=== PATIENT | female | born 1945 | race American Indian/Alaskan Native ===

== ENCOUNTER 2019-08-06 04:33 | Observation (INO) | payer MEDICARE ==
[2019-08-06] MEDS ORDERED: methylPREDNISolone Sod Succinate 125 MG/2 ML INJ IV ONE (05:09)
[2019-08-06] MEDS ORDERED: FUROSEMIDE 40 MG/4 ML INJ IV ONE (05:09)
[2019-08-06] MEDS ORDERED: NITROGLYCERIN 0.4 MG TAB SUBL SL ONE ×2 (05:10→05:16)
--- NOTE | 2019-08-06 06:03 | XRay Report ---
CHEST 1 VIEW 08/06/2019 5:26 AM INDICATION / CLINICAL INFORMATION: Dyspnea. COMPARISON: None available. FINDINGS: SUPPORT DEVICES: None. HEART / MEDIASTINUM: Heart is enlarged with pulmonary venous hypertension. LUNGS / PLEURA: Moderate interstitial pulmonary edema with small pleural effusions. No pneumothorax. ADDITIONAL FINDINGS: No significant additional findings. IMPRESSION: 1. Congestive heart failure. Signer Name: Tiffany Osorio MD Signed: 08/06/2019 5:59 AM Workstation Name: [id number]
[2019-08-06 06:08] LABS: Basophils # (Auto) 0.1 K/mm3 (0.0-0.1); Basophils % (Auto) 0.8 % (0.0-1.8); Eosinophils % (Auto) 0.6 % (0.0-4.3); Hematocrit 30.9 % (30.3-42.9); Hemoglobin 9.9 gm/dl (10.1-14.3); Lymphocytes % (Auto) 14.4 % (13.4-35.0); Mean Corpuscular HGB Conc 32 % (30-34); Mean Corpuscular Volume 87 fl (79-97); Monocytes # (Auto) 0.3 K/mm3 (0.0-0.8); Platelet Count 233 K/mm3 (140-440); Red Blood Count 3.56 M/mm3 (3.65-5.03); Red Cell Distribution Width 16.5 % (13.2-15.2)
[2019-08-06 06:20] LABS: INR 1.08 (0.87-1.13); Partial Thromboplastin Time 28.7 Sec. (24.2-36.6)
[2019-08-06 07:21] LABS: Creatine Kinase MB 2.4 ng/mL (0.0-4.0)
[2019-08-06 07:23] LABS: Albumin 3.9 g/dL (3.9-5); Bilirubin,Direct 0.2 mg/dL (0-0.2)
--- NOTE | 2019-08-06 08:14 | Emergency Department Report ---
ED Shortness of Breath HPI - General Chief Complaint: Dyspnea/Respdistress Stated Complaint: SOB Time Seen by Provider: 08/06/19 06:12 Source: patient, EMS Mode of arrival: Stretcher Limitations: Physical Limitation - History of Present Illness Initial Comments: This is a 74-year-old female who arrives from out of town. Apparently she is from her medicine. She presented with shortness of breath prior to my arrival with a markedly elevated blood pressure. She was given Lasix and nitrates prior to arrival. Blood pressure was persistently high. She was given labetalol. On my encounter patient was in respiratory distress BiPAP was immediately ini tiated. She is not complaining of chest pain. Said no recent fever or chills or significant productive cough. She is now here with a family member. This has history of asthma did receive a neb in route. MD Complaint: shortness of breath -: Gradual, days(s) Severity: severe Improves With: nothing Worsens With: nothing Known History Of: congestive heart failure Associated Symptoms: denies other symptoms - Related Data Home Medications Medication Instructions Recorded Confirmed Last Taken HYDROcodone/APAP 5-325 [[place] 1 each PO Q6HR PRN 08/06/19 08/06/19 Unknown 5/325] Linaclotide [Linzess] 145 mcg PO QDAY PRN 08/06/19 08/06/19 Unknown Lisinopril/Hydrochlorothiazide 1 tab PO QDAY 08/06/19 08/06/19 Unknown [Zestoretic 20-12.5 mg] Nitroglycerin [Nitrostat] 0.4 mg SL Q5M PRN 08/06/19 08/06/19 Unknown Oxybutynin [Ditropan] 5 mg PO TID PRN 08/06/19 08/06/19 Unknown Pantoprazole [Protonix] 40 mg PO BID 08/06/19 08/06/19 Unknown Sertraline [Zoloft] 50 mg PO QDAY 08/06/19 08/06/19 Unknown cloNIDine [Catapres] 0.1 mg PO BID 08/06/19 08/06/19 Unknown Allergies Allergy/AdvReac Type Severity Reaction Status Date / Time No Known Allergies Allergy Unverified 08/06/19 04:48 ED Review of Systems ROS: Stated complaint: SOB Other details as noted in HPI Comment: Unobtainable due to pts medical conditions (limited secondary to respiratory distress) ED Past Medical Hx - Past Medical History Previous Medical History?: Yes Hx Hypertension: Yes Hx Asthma: Yes - Social History Smoking Status: Current Every Day Smoker Substance Use Type: Alcohol, Marijuana - Medications Home Medications: Home Medications Medication Instructions Recorded Confirmed Last Taken Type HYDROcodone/APAP 5-325 [[place] 1 each PO Q6HR PRN 08/06/19 08/06/19 Unknown History 5/325] Linaclotide [Linzess] 145 mcg PO QDAY PRN 08/06/19 08/06/19 Unknown History Lisinopril/Hydrochlorothiazide 1 tab PO QDAY 08/06/19 08/06/19 Unknown History [Zestoretic 20-12.5 mg] Nitroglycerin [Nitrostat] 0.4 mg SL Q5M PRN 08/06/19 08/06/19 Unknown History Oxybutynin [Ditropan] 5 mg PO TID PRN 08/06/19 08/06/19 Unknown History Pantoprazole [Protonix] 40 mg PO BID 08/06/19 08/06/19 Unknown History Sertraline [Zoloft] 50 mg PO QDAY 08/06/19 08/06/19 Unknown History cloNIDine [Catapres] 0.1 mg PO BID 08/06/19 08/06/19 Unknown History ED Physical Exam - General Limitations: Physical Limitation General appearance: alert, in no apparent distress - Head Head exam: Present: atraumatic, normocephalic - Eye Eye exam: Present: normal appearance - ENT ENT exam: Present: mucous membranes moist - Neck Neck exam: Present: normal inspection - Respiratory Respiratory exam: Present: respiratory distress, rales, accessory muscle use. Absent: normal lung sounds bilaterally - Cardiovascular Cardiovascular Exam: Present: regular rate, normal rhythm. Absent: systolic murmur, diastolic murmur, rubs, gallop - GI/Abdominal GI/Abdominal exam: Present: soft, normal bowel sounds. Absent: distended, tenderness, guarding, rebound, rigid - Extremities Exam Extremities exam: Present: normal inspection - Back Exam Back exam: Present: normal inspection - Neurological Exam Neurological exam: Present: alert, oriented X3, CN II-XII intact. Absent: motor sensory deficit - Psychiatric Psychiatric exam: Present: normal affect, normal mood - Skin Skin exam: Present: warm, dry, intact, normal color. Absent: rash ED Course Vital Signs 08/06/19 08/06/19 08/06/19 04:55 05:00 05:05 Temperature 97.6 F Pulse Rate 80 80 Respiratory 20 26 H Rate Blood Pressure 239/124 Blood Pressure 239/124 [Right] O2 Sat by Pulse 100 100 Oximetry 08/06/19 08/06/19 08/06/19 05:15 05:30 05:45 Temperature Pulse Rate 75 83 72 Respiratory 26 H 25 H 25 H Rate Blood Pressure 243/120 230/151 220/111 Blood Pressure [Right] O2 Sat by Pulse 100 100 100 Oximetry 08/06/19 08/06/19 08/06/19 06:00 06:15 06:31 Temperature Pulse Rate 75 74 99 H Respiratory 27 H 25 H 32 H Rate Blood Pressure 243/120 243/120 235/112 Blood Pressure [Right] O2 Sat by Pulse 100 100 99 Oximetry 08/06/19 08/06/19 08/06/19 06:45 06:55 07:00 Temperature Pulse Rate 58 L 61 55 L Respiratory 23 28 H 17 Rate Blood Pressure 140/88 150/87 Blood Pressure 164/104 [Right] O2 Sat by Pulse 100 100 100 Oximetry 08/06/19 07:15 Temperature Pulse Rate 59 L Respiratory 15 Rate Blood Pressure 148/87 Blood Pressure [Right] O2 Sat by Pulse 99 Oximetry - Reevaluation(s) Reevaluation #1: Patient responded well to 10 of labetalol. She is placed on BiPAP. She responded well to that. She will remain on BiPAP. She does appear to be much continuous conveyor screen drier now lungs sound better. Work breathing is normal. She will be admitted to telemetry on BiPAP. She may likely be a candidate to remove BiPAP today. 08/06/19 08:27 ED Medical Decision Making - Lab Data Result diagrams: 08/06/19 05:24 08/06/19 05:24 Laboratory Results - last 24 hr 08/06/19 08/06/19 08/06/19 05:24 05:24 05:24 WBC 6.9 RBC 3.56 L Hgb 9.9 L Hct 30.9 MCV 87 MCH 28 MCHC 32 RDW 16.5 H Plt Count 233 Lymph % (Auto) 14.4 [place] % (Auto) 5.0 Eos % (Auto) 0.6 Baso % (Auto) 0.8 Lymph # 1.0 L [place] # 0.3 Eos # 0.0 Baso # 0.1 Seg Neutrophils % 79.2 H Seg Neutrophils # 5.5 PT 13.9 INR 1.08 APTT 28.7 Sodium 143 Potassium 4.1 Chloride 105.4 Carbon Dioxide 26 Anion Gap 16 BUN 18 H Creatinine 1.1 Estimated GFR 49 BUN/Creatinine Ratio 16 Glucose 168 H Calcium 9.0 Total Bilirubin Direct Bilirubin Indirect Bilirubin AST ALT Alkaline Phosphatase Total Creatine Kinase CK-MB (CK-2) CK-MB (CK-2) Rel Index Troponin T NT-Pro-B Natriuret Pep Total Protein Albumin Albumin/Globulin Ratio 08/06/19 08/06/19 08/06/19 05:24 05:24 05:27 WBC RBC Hgb Hct MCV MCH MCHC RDW Plt Count Lymph % (Auto) [place] % (Auto) Eos % (Auto) Baso % (Auto) Lymph # [place] # Eos # Baso # Seg Neutrophils % Seg Neutrophils # PT INR APTT Sodium Potassium Chloride Carbon Dioxide Anion Gap BUN Creatinine Estimated GFR BUN/Creatinine Ratio Glucose Calcium Total Bilirubin 0.40 Direct Bilirubin 0.2 Indirect Bilirubin 0.2 AST 29 ALT 13 Alkaline Phosphatase 82 Total Creatine Kinase 86 CK-MB (CK-2) 2.4 CK-MB (CK-2) Rel Index 2.7 Troponin T 0.015 NT-Pro-B Natriuret Pep 3528 H Total Protein 7.9 Albumin 3.9 Albumin/Globulin Ratio 1.0 - EKG Data -: EKG Interpreted by Me EKG shows normal: sinus rhythm Rate: normal - EKG Data Interpretation: LVH (LVH with associated repolarization abnormality) - Radiology Data Radiology results: report reviewed (IMPRESSION: My impression was pulmonary edema) Critical Care Time: Yes Critical care time in (mins) excluding proc time.: 45 Critical care attestation.: If time is entered above; I have spent that time in minutes in the direct care of this critically ill patient, excluding procedure time. ED Disposition Clinical Impression: Respiratory distress, Malignant hypertension Pulmonary edema Qualifiers: Chronicity: acute Qualified Code(s): J81.0 - Acute pulmonary edema Disposition: OP ADMIT IP TO THIS HOSP Is pt being admited?: Yes Does the pt Need Aspirin: Yes Condition: Stable Instructions: Pulmonary Edema (ED), Hypertension (ED) Time of Disposition: 08:29
[2019-08-06] MEDS ORDERED: ASPIRIN 325 MG TAB PO ONE (08:30)
[2019-08-06 09:30] LABS: Chol/HDL Ratio 2.16 %
[2019-08-06] MEDS ORDERED: OXYBUTYNIN 5 MG TAB PO PRN (11:08)
[2019-08-06] MEDS ORDERED: LINACLOTIDE 145 MCG PO PRN (11:08)
[2019-08-06] MEDS ORDERED: HYDROcodone/ACETAMINOPHEN 5-325 MG TAB PO PRN (11:08)
[2019-08-06] MEDS ORDERED: NITROGLYCERIN 0.4 MG TAB SUBL SL PRN (11:08)
[2019-08-06] MEDS ORDERED: HYDROmorphone 1 MG/1 ML INJ IV PRN (11:10)
[2019-08-06] MEDS ORDERED: ACETAMINOPHEN 325 MG TAB PO PRN (11:10)
[2019-08-06] MEDS ORDERED: ONDANSETRON 4 MG/2 ML INJ IV PRN (11:10)
[2019-08-06] MEDS ORDERED: NON-FORMULARY EACH (Lisinopril/Hydrochlorothiazide [Zestoretic 20-12.5 Mg] 1 TAB) PO SCH (11:15)
[2019-08-06] MEDS ORDERED: hydrALAZINE 20 MG/1 ML INJ IV PRN (11:18)
[2019-08-06] MEDS ORDERED: hydroCHLOROthiazide 12.5 MG CAP PO SCH (12:00)
--- NOTE | 2019-08-06 14:40 | Consultation ---
<JAMESON LORENZO - Last Filed: 08/06/19 14:53> History of Present Illness Consult date: 08/06/19 Requesting physician: CARMINA NICHOLS Consult reason: congestive heart failure History of present illness: Ms. Bates is a 74 y/o female who presented to [facility] with c/o abdominal pain and accompanying SOB that worsened over the past two nights. She is previously unknown to our practice and recently relocated here from [facility], but there are no medical records available for review. She reports a history of asthma, CHF and hypertension. On admission, her BP was markedly elevated and she required BiPAP for respiratory distress. She denied chest pain, n/v, fever, chills or a producdtive cough. After receiving nitrates, Lasix and nebs, her symptoms improved and she has subsequently been weaned down to [place]. An x-ray was consistent with heart failure and her troponins elevated to 0.015, 0.03 and 0.029. Past History Past Medical History: heart failure, other (asthma, ) Medications and Allergies Allergies Allergy/AdvReac Type Severity Reaction Status Date / Time No Known Allergies Allergy Unverified 08/06/19 04:48 Home Medications Medication Instructions Recorded Confirmed Last Taken Type HYDROcodone/APAP 5-325 [[place] 1 each PO Q6HR PRN 08/06/19 08/06/19 Unknown History 5/325] Linaclotide [Linzess] 145 mcg PO QDAY PRN 08/06/19 08/06/19 Unknown History Lisinopril/Hydrochlorothiazide 1 tab PO QDAY 08/06/19 08/06/19 Unknown History [Zestoretic 20-12.5 mg] Nitroglycerin [Nitrostat] 0.4 mg SL Q5M PRN 08/06/19 08/06/19 Unknown History Oxybutynin [Ditropan] 5 mg PO TID PRN 08/06/19 08/06/19 Unknown History Pantoprazole [Protonix] 40 mg PO BID 08/06/19 08/06/19 Unknown History Sertraline [Zoloft] 50 mg PO QDAY 08/06/19 08/06/19 Unknown History cloNIDine [Catapres] 0.1 mg PO BID 08/06/19 08/06/19 Unknown History Active Meds: Active Medications Acetaminophen (Tylenol) 650 mg PO Q4H PRN PRN Reason: Pain MILD(1-3)/Fever >100.5/CHEUNG Acetaminophen/Hydrocodone Bitart ([place] 5/325) 1 each PO Q6HR PRN PRN Reason: PAIN Clonidine HCl (Catapres) 0.1 mg PO Q8H [facility] Hydralazine HCl (Apresoline) 10 mg IV Q3H PRN PRN Reason: Blood Pressure Hydromorphone HCl (Dilaudid) 0.5 mg IV Q3H PRN PRN Reason: Pain , Severe (7-10) Lisinopril (Zestril) 20 mg PO QDAY [facility] Miscellaneous Medication (Linaclotide [Linzess]) 145 mcg PO QDAY PRN PRN Reason: Constipation Nitroglycerin (Nitrostat) 0.4 mg SL Q5M PRN PRN Reason: Chest Pain Ondansetron HCl (Zofran) 4 mg IV Q8H PRN PRN Reason: Nausea And Vomiting Oxybutynin Chloride (Ditropan) 5 mg PO TID PRN PRN Reason: urine incontinence Pantoprazole Sodium (Protonix) 40 mg PO BID [facility] Sertraline HCl (Zoloft) 50 mg PO QDAY [facility] Sodium Chloride (Sodium Chloride Flush Syringe 10 Ml) 10 ml IV BID [facility] Sodium Chloride (Sodium Chloride Flush Syringe 10 Ml) 10 ml IV PRN PRN PRN Reason: LINE FLUSH Review of Systems All systems: negative Respiratory: shortness of breath Physical Examination Vital Signs Temp Pulse Resp Pulse Ox 97.6 F 80 20 100 08/06/19 04:55 08/06/19 04:55 08/06/19 04:55 08/06/19 04:55 General appearance: no acute distress, other (edentulous) HEENT: Positive: PERRL Neck: Positive: neck supple Cardiac: Positive: Reg Rate and Rhythm Lungs: Positive: Rales (right base) Neuro: Positive: Grossly Intact Abdomen: Positive: Unremarkable Female genitourinary: deferred Skin: Positive: Clear Musculoskeletal: Normal Range of Motion Extremities: Present: normal Results 08/06/19 05:24 08/06/19 05:24 Cardiac Enzymes 08/06/19 Range/Units 05:27 AST 29 (5-40) units/L CK-MB (CK-2) 2.4 (0.0-4.0) ng/mL Coagulation 08/06/19 Range/Units 05:24 PT 13.9 (12.2-14.9) Sec. INR 1.08 (0.87-1.13) APTT 28.7 (24.2-36.6) Sec. Lipids 08/06/19 Range/Units 08:39 Triglycerides 47 (2-149) mg/dL Cholesterol 167 (50-199) mg/dL HDL Cholesterol 77 H (40-59) mg/dL Cholesterol/HDL Ratio 2.16 % CBC 08/06/19 Range/Units 05:24 WBC 6.9 (4.5-11.0) K/mm3 RBC 3.56 L (3.65-5.03) M/mm3 Hgb 9.9 L (10.1-14.3) gm/dl Hct 30.9 (30.3-42.9) % Plt Count 233 (140-440) K/mm3 Lymph # 1.0 L (1.2-5.4) K/mm3 [place] # 0.3 (0.0-0.8) K/mm3 Eos # 0.0 (0.0-0.4) K/mm3 Baso # 0.1 (0.0-0.1) K/mm3 Comprehensive Metabolic Panel 08/06/19 08/06/19 Range/Units 05:24 05:27 Sodium 143 (137-145) mmol/L Potassium 4.1 (3.6-5.0) mmol/L Chloride 105.4 (98-107) mmol/L Carbon Dioxide 26 (22-30) mmol/L BUN 18 H (7-17) mg/dL Creatinine 1.1 (0.7-1.2) mg/dL Glucose 168 H (65-100) mg/dL Calcium 9.0 (8.4-10.2) mg/dL Direct Bilirubin 0.2 (0-0.2) mg/dL Indirect Bilirubin 0.2 mg/dL AST 29 (5-40) units/L ALT 13 (7-56) units/L Alkaline Phosphatase 82 (35-129) units/L Total Protein 7.9 (6.3-8.2) g/dL Albumin 3.9 (3.9-5) g/dL - Imaging and Cardiology Echo: pending EKG interpretations - Telemetry EKG Rhythm: Sinus Rhythm Assessment and Plan Ms. Bates is a 74 y/o female who presented to the ED with worsening abdominal pain and SOB. Her presentation is consistent with a heart failure exacerbation; however, the type is unknown. Will obtain echocardiogram and initiate IV Lasix BID. Continue to trend troponins and current cardiac management. Will d/c stress test as she currently denies chest pain - if ultimately indicated, will consider obtaining while an outpatient. Troponin elevation likely d/t HF. Further recommendations pending hospital course. The patient has been seen in conjunction with Dr. Shirley, who agrees with the assessment and plan. - Patient Problems (1) Heart failure Current Visit: Yes Status: Acute Qualifiers: Heart failure type: unspecified (2) Hypertension Current Visit: Yes Status: Chronic (3) Respiratory distress Current Visit: Yes Status: Acute <UMM SHIRLEY R - Last Filed: 08/06/19 16:30> Medications and Allergies Active Meds: Active Medications Acetaminophen (Tylenol) 650 mg PO Q4H PRN PRN Reason: Pain MILD(1-3)/Fever >100.5/[place]UNG Acetaminophen/Hydrocodone Bitart ([place] 5/325) 1 each PO Q6HR PRN PRN Reason: PAIN Clonidine HCl (Catapres) 0.1 mg PO Q8H [facility] Last Admin: 08/06/19 15:04 Dose: 0.1 mg Documented by: Furosemide (Lasix) 40 mg IV 0600,1800 [facility] Hydralazine HCl (Apresoline) 10 mg IV Q3H PRN PRN Reason: Blood Pressure Hydromorphone HCl (Dilaudid) 0.5 mg IV Q3H PRN PRN Reason: Pain , Severe (7-10) Lisinopril (Zestril) 20 mg PO QDAY [facility] Last Admin: 08/06/19 15:04 Dose: 20 mg Documented by: Miscellaneous Medication (Linaclotide [Linzess]) 145 mcg PO QDAY PRN PRN Reason: Constipation Nitroglycerin (Nitrostat) 0.4 mg SL Q5M PRN PRN Reason: Chest Pain Ondansetron HCl (Zofran) 4 mg IV Q8H PRN PRN Reason: Nausea And Vomiting Oxybutynin Chloride (Ditropan) 5 mg PO TID PRN PRN Reason: urine incontinence Pantoprazole Sodium (Protonix) 40 mg PO BID [facility] Last Admin: 08/06/19 15:04 Dose: 40 mg Documented by: Sertraline HCl (Zoloft) 50 mg PO QDAY [facility] Last Admin: 08/06/19 15:04 Dose: 50 mg Documented by: Sodium Chloride (Sodium Chloride Flush Syringe 10 Ml) 10 ml IV BID [facility] Last Admin: 08/06/19 15:09 Dose: 10 ml Documented by: Sodium Chloride (Sodium Chloride Flush Syringe 10 Ml) 10 ml IV PRN PRN PRN Reason: LINE FLUSH Physical Examination Vital Signs Temp Pulse Resp Pulse Ox 97.6 F 80 20 100 08/06/19 04:55 08/06/19 04:55 08/06/19 04:55 08/06/19 04:55 Results 08/06/19 05:24 08/06/19 05:24 Cardiac Enzymes 08/06/19 Range/Units 05:27 AST 29 (5-40) units/L CK-MB (CK-2) 2.4 (0.0-4.0) ng/mL Coagulation 08/06/19 Range/Units 05:24 PT 13.9 (12.2-14.9) Sec. INR 1.08 (0.87-1.13) APTT 28.7 (24.2-36.6) Sec. Lipids 08/06/19 Range/Units 08:39 Triglycerides 47 (2-149) mg/dL Cholesterol 167 (50-199) mg/dL HDL Cholesterol 77 H (40-59) mg/dL Cholesterol/HDL Ratio 2.16 % CBC 08/06/19 Range/Units 05:24 WBC 6.9 (4.5-11.0) K/mm3 RBC 3.56 L (3.65-5.03) M/mm3 Hgb 9.9 L (10.1-14.3) gm/dl Hct 30.9 (30.3-42.9) % Plt Count 233 (140-440) K/mm3 Lymph # 1.0 L (1.2-5.4) K/mm3 [place] # 0.3 (0.0-0.8) K/mm3 Eos # 0.0 (0.0-0.4) K/mm3 Baso # 0.1 (0.0-0.1) K/mm3 Comprehensive Metabolic Panel 08/06/19 08/06/19 Range/Units 05:24 05:27 Sodium 143 (137-145) mmol/L Potassium 4.1 (3.6-5.0) mmol/L Chloride 105.4 (98-107) mmol/L Carbon Dioxide 26 (22-30) mmol/L BUN 18 H (7-17) mg/dL Creatinine 1.1 (0.7-1.2) mg/dL Glucose 168 H (65-100) mg/dL Calcium 9.0 (8.4-10.2) mg/dL Direct Bilirubin 0.2 (0-0.2) mg/dL Indirect Bilirubin 0.2 mg/dL AST 29 (5-40) units/L ALT 13 (7-56) units/L Alkaline Phosphatase 82 (35-129) units/L Total Protein 7.9 (6.3-8.2) g/dL Albumin 3.9 (3.9-5) g/dL Assessment and Plan Patient has undelying anemia,which may be contributing to chf.
[2019-08-06] MEDS: PANTOPRAZOLE 40 MG TAB PO SCH ×2 (15:04→21:42)
[2019-08-06] MEDS: LISINOPRIL 20 MG TAB PO SCH (15:04)
[2019-08-06] MEDS: SERTRALINE 50 MG TAB PO SCH (15:04)
[2019-08-06] MEDS: cloNIDine 0.1 MG TAB PO SCH ×2 (15:04→21:42)
[2019-08-06] MEDS: FUROSEMIDE 40 MG/4 ML INJ IV SCH (18:21)
[2019-08-07] MEDS: FUROSEMIDE 40 MG/4 ML INJ IV SCH ×2 (06:11→07:08)
[2019-08-07] MEDS: cloNIDine 0.1 MG TAB PO SCH ×2 (06:16→13:11)
[2019-08-07 06:32] LABS: Basophils % (Auto) 0.3 % (0.0-1.8); Hematocrit 26.9 % (30.3-42.9); Hemoglobin 8.8 gm/dl (10.1-14.3); Lymphocytes # (Auto) 0.9 K/mm3 (1.2-5.4); Lymphocytes % (Auto) 10.9 % (13.4-35.0); Mean Corpuscular HGB Conc 33 % (30-34); Mean Corpuscular Volume 85 fl (79-97); Monocytes # (Auto) 0.6 K/mm3 (0.0-0.8); Monocytes % (Auto) 6.6 % (0.0-7.3); Platelet Count 208 K/mm3 (140-440); Red Blood Count 3.15 M/mm3 (3.65-5.03); Red Cell Distribution Width 16.2 % (13.2-15.2)
[2019-08-07 06:49] LABS: Albumin 3.4 g/dL (3.9-5); Calcium 9.1 mg/dL (8.4-10.2)
--- NOTE | 2019-08-07 09:12 | History and Physical Report ---
History of Present Illness Date of examination: 08/06/19 Date of admission: 08/06/19 08:31 Chief complaint: Hypertensive Emergency,CHF - new onset History of present illness: 74 year old female comes in persistent SOB and High BP.Patient is from [place] and visiting her daughter.Not taking her BP meds regularly.No orthopnea.SOB on some exertion.Class II NYHA symptomms.No fever or chills.ecent travel present.No Leg swelling or cramps. BP was 239/134 initially Was given IV Labetolol in ED. Past History Past Medical History: heart failure, hypertension, hyperlipidemia, other (asthma, ) Past Surgical History: No surgical history Social history: lives with family, full code Family history: hypertension Medications and Allergies Allergies Allergy/AdvReac Type Severity Reaction Status Date / Time No Known Allergies Allergy Unverified 08/06/19 04:48 Home Medications Medication Instructions Recorded Confirmed Last Taken Type HYDROcodone/APAP 5-325 [[place] 1 each PO Q6HR PRN 08/06/19 08/06/19 Unknown History 5/325] Linaclotide [Linzess] 145 mcg PO QDAY PRN 08/06/19 08/06/19 Unknown History Lisinopril/Hydrochlorothiazide 1 tab PO QDAY 08/06/19 08/06/19 Unknown History [Zestoretic 20-12.5 mg] Nitroglycerin [Nitrostat] 0.4 mg SL Q5M PRN 08/06/19 08/06/19 Unknown History Oxybutynin [Ditropan] 5 mg PO TID PRN 08/06/19 08/06/19 Unknown History Pantoprazole [Protonix] 40 mg PO BID 08/06/19 08/06/19 Unknown History Sertraline [Zoloft] 50 mg PO QDAY 08/06/19 08/06/19 Unknown History cloNIDine [Catapres] 0.1 mg PO BID 08/06/19 08/06/19 Unknown History Active Meds: Active Medications Acetaminophen (Tylenol) 650 mg PO Q4H PRN PRN Reason: Pain MILD(1-3)/Fever >100.5/CHEUNG Acetaminophen/Hydrocodone Bitart ([place]on 5/325) 1 each PO Q6HR PRN PRN Reason: PAIN Clonidine HCl (Catapres) 0.1 mg PO Q8H RODGER Last Admin: 08/07/19 06:16 Dose: 0.1 mg Documented by: Furosemide (Lasix) 40 mg IV 0600,1800 [facility] Last Admin: 08/07/19 07:08 Dose: 40 mg Documented by: Hydralazine HCl (Apresoline) 10 mg IV Q3H PRN PRN Reason: Blood Pressure Hydromorphone HCl (Dilaudid) 0.5 mg IV Q3H PRN PRN Reason: Pain , Severe (7-10) Lisinopril (Zestril) 20 mg PO QDAY [facility] Last Admin: 08/06/19 15:04 Dose: 20 mg Documented by: Miscellaneous Medication (Linaclotide [Linzess]) 145 mcg PO QDAY PRN PRN Reason: Constipation Nitroglycerin (Nitrostat) 0.4 mg SL Q5M PRN PRN Reason: Chest Pain Ondansetron HCl (Zofran) 4 mg IV Q8H PRN PRN Reason: Nausea And Vomiting Oxybutynin Chloride (Ditropan) 5 mg PO TID PRN PRN Reason: urine incontinence Pantoprazole Sodium (Protonix) 40 mg PO BID [facility] Last Admin: 08/06/19 21:42 Dose: 40 mg Documented by: Sertraline HCl (Zoloft) 50 mg PO QDAY [facility] Last Admin: 08/06/19 15:04 Dose: 50 mg Documented by: Sodium Chloride (Sodium Chloride Flush Syringe 10 Ml) 10 ml IV BID [facility] Last Admin: 08/06/19 21:43 Dose: 10 ml Documented by: Sodium Chloride (Sodium Chloride Flush Syringe 10 Ml) 10 ml IV PRN PRN PRN Reason: LINE FLUSH Review of Systems All systems: negative Constitutional: no weight loss, no weight gain, no fever, no chills Ears, nose, mouth and throat: no ear pain, no ear discharge, no tinnitis, no decreased hearing Cardiovascular: shortness of breath, dyspnea on exertion, no orthopnea Respiratory: dyspnea on exertion, congestion Gastrointestinal: no abdominal pain, no nausea, no vomiting, no diarrhea Genitourinary Female: urinary frequency Musculoskeletal: no neck stiffness, no neck pain, no shooting arm pain, no arm numbness/tingling Integumentary: no rash, no pruritis, no redness, no sores Neurological: no seizures, no syncope Psychiatric: no anxiety, no memory loss, no change in sleep habits, no sleep disturbances Endocrine: no cold intolerance, no heat intolerance, no polyphagia, no excessive thirst Hematologic/Lymphatic: no easy bruising, no easy bleeding Allergic/Immunologic: no urticaria, no allergic rhinitis, no wheezing Exam - Constitutional Vitals: Temp Pulse Resp BP Pulse Ox 97.8 F 60 18 239/134 97 08/07/19 04:05 08/07/19 04:05 08/07/19 04:05 08/07/19 04:05 08/07/19 04:05 General appearance: Present: no acute distress, well-nourished - EENT Eyes: Present: PERRL ENT: hearing intact, clear oral mucosa - Neck Neck: Present: supple, normal ROM - Respiratory Respiratory effort: normal Respiratory: bilateral: CTA - Cardiovascular Heart rate: 78 Rhythm: regular Heart Sounds: Present: S1 & S2. Absent: rub, click - Extremities Extremities: no ischemia, pulses intact, pulses symmetrical, No edema Peripheral Pulses: within normal limits - Abdominal General gastrointestinal: Present: soft, non-tender, non-distended, normal bowel sounds Female genitourinary: Present: normal - Rectal Rectal Exam: deferred - Integumentary Integumentary: Present: clear, warm, dry - Musculoskeletal Musculoskeletal: gait normal, strength equal bilaterally - Psychiatric Psychiatric: appropriate mood/affect, intact judgment & insight - Neurologic Neurologic: CNII-XII intact, moves all extremities - Allied Health Allied health notes reviewed: nursing, case management Results - Labs CBC & Chem 7: 08/07/19 05:47 08/07/19 05:47 Labs: Laboratory Last Values WBC 8.7 K/mm3 (4.5-11.0) 08/07/19 05:47 RBC 3.15 M/mm3 (3.65-5.03) L 08/07/19 05:47 Hgb 8.8 gm/dl (10.1-14.3) L 08/07/19 05:47 Hct 26.9 % (30.3-42.9) L 08/07/19 05:47 MCV 85 fl (79-97) 08/07/19 05:47 MCH 28 pg (28-32) 08/07/19 05:47 MCHC 33 % (30-34) 08/07/19 05:47 RDW 16.2 % (13.2-15.2) H 08/07/19 05:47 Plt Count 208 K/mm3 (140-440) 08/07/19 05:47 Lymph % (Auto) 10.9 % (13.4-35.0) L 08/07/19 05:47 Thomas % (Auto) 6.6 % (0.0-7.3) 08/07/19 05:47 Eos % (Auto) 0.0 % (0.0-4.3) 08/07/19 05:47 Baso % (Auto) 0.3 % (0.0-1.8) 08/07/19 05:47 Lymph # 0.9 K/mm3 (1.2-5.4) L 08/07/19 05:47 Thomas # 0.6 K/mm3 (0.0-0.8) 08/07/19 05:47 Eos # 0.0 K/mm3 (0.0-0.4) 08/07/19 05:47 Baso # 0.0 K/mm3 (0.0-0.1) 08/07/19 05:47 Seg Neutrophils % 82.2 % (40.0-70.0) H 08/07/19 05:47 Seg Neutrophils # 7.1 K/mm3 (1.8-7.7) 08/07/19 05:47 PT 13.9 Sec. (12.2-14.9) 08/06/19 05:24 INR 1.08 (0.87-1.13) 08/06/19 05:24 APTT 28.7 Sec. (24.2-36.6) 08/06/19 05:24 Sodium 140 mmol/L (137-145) 08/07/19 05:47 Potassium 3.3 mmol/L (3.6-5.0) L 08/07/19 05:47 Chloride 100.6 mmol/L (98-107) 08/07/19 05:47 Carbon Dioxide 25 mmol/L (22-30) 08/07/19 05:47 Anion Gap 18 mmol/L 08/07/19 05:47 BUN 30 mg/dL (7-17) H 08/07/19 05:47 Creatinine 1.4 mg/dL (0.7-1.2) H 08/07/19 05:47 Estimated GFR 45 ml/min 08/07/19 05:47 BUN/Creatinine Ratio 21 % 08/07/19 05:47 Glucose 130 mg/dL (65-100) H 08/07/19 05:47 Hemoglobin A1c 5.7 % (4-6) 08/06/19 12:18 Calcium 9.1 mg/dL (8.4-10.2) 08/07/19 05:47 Total Bilirubin 0.40 mg/dL (0.1-1.2) 08/07/19 05:47 Direct Bilirubin 0.2 mg/dL (0-0.2) 08/06/19 05:27 Indirect Bilirubin 0.2 mg/dL 08/06/19 05:27 AST 29 units/L (5-40) 08/07/19 05:47 ALT 12 units/L (7-56) 08/07/19 05:47 Alkaline Phosphatase 65 units/L (35-129) 08/07/19 05:47 Total Creatine Kinase 86 units/L (30-135) 08/06/19 05:27 CK-MB (CK-2) 2.4 ng/mL (0.0-4.0) 08/06/19 05:27 CK-MB (CK-2) Rel Index 2.7 (0-4) 08/06/19 05:27 Troponin T 0.019 ng/mL (0.00-0.029) 08/06/19 22:50 NT-Pro-B Natriuret Pep 3528 pg/mL (0-900) H 08/06/19 05:24 Total Protein 7.0 g/dL (6.3-8.2) 08/07/19 05:47 Albumin 3.4 g/dL (3.9-5) L 08/07/19 05:47 Albumin/Globulin Ratio 0.9 % 08/07/19 05:47 Triglycerides 47 mg/dL (2-149) 08/06/19 08:39 Cholesterol 167 mg/dL (50-199) 08/06/19 08:39 LDL Cholesterol Direct 93 mg/dL (50-130) 08/06/19 08:39 HDL Cholesterol 77 mg/dL (40-59) H 08/06/19 08:39 Cholesterol/HDL Ratio 2.16 % 08/06/19 08:39 Short CBC 08/07/19 Range/Units 05:47 WBC 8.7 (4.5-11.0) K/mm3 Hgb 8.8 L (10.1-14.3) gm/dl Hct 26.9 L (30.3-42.9) % Plt Count 208 (140-440) K/mm3 BMP 08/07/19 05:47 Sodium 140 Potassium 3.3 L Chloride 100.6 Carbon Dioxide 25 BUN 30 H Creatinine 1.4 H Glucose 130 H Calcium 9.1 Cardiac Enzymes 08/06/19 Range/Units 22:50 Troponin T 0.019 (0.00-0.029) ng/mL Liver Function 08/07/19 Range/Units 05:47 Total Bilirubin 0.40 (0.1-1.2) mg/dL AST 29 (5-40) units/L ALT 12 (7-56) units/L Alkaline Phosphatase 65 (35-129) units/L Albumin 3.4 L (3.9-5) g/dL - Imaging and Cardiology EKG: report reviewed (Nsr 76/min,LVH with repolarization abnormalities) Chest x-ray: report reviewed (NAF) Imaging and Cardiology: ECHO 55 to 60 percent Restrictive diastolic filling of LV Assessment and Plan Advance Directives: Yes - Patient Problems (1) Malignant hypertension Current Visit: Yes Status: Acute Plan to address problem: patient initiated on Clonidine q8 0.1 mg q8 and lisinopril 20/12.5 IV Hydralazine q3 prn (2) Acute heart failure with preserved ejection fraction Current Visit: Yes Status: Acute Plan to address problem: Diastolic Heart failure Lasix (3) IBS (irritable bowel syndrome) Current Visit: Yes Status: Chronic Qualifiers: Irritable bowel syndrome type: with both diarrhea and constipation Qualified Code(s): 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 irritable bowel syndrome Plan to address problem: Cont Linzess (4) OAB (overactive bladder) Current Visit: Yes Status: Chronic Plan to address problem: Cont Oxybutinin (5) GERD (gastroesophageal reflux disease) Current Visit: Yes Status: Chronic Qualifiers: Esophagitis presence: without esophagitis Qualified Code(s): K21.9 - Ga stro-esophageal reflux disease without esophagitis Plan to address problem: Cont protonix (6) Depression Current Visit: Yes Status: Chronic Qualifiers: Depression Type: unspecified Qualified Code(s): F32.9 - Major depressive disorder, single episode, unspecified Plan to address problem: Cont Zoloft (7) DVT prophylaxis Current Visit: Yes Status: Acute Plan to address problem: On Lovenox and GI prophylaxis
[2019-08-07] MEDS: SERTRALINE 50 MG TAB PO SCH (09:43)
[2019-08-07] MEDS: LISINOPRIL 20 MG TAB PO SCH (09:43)
[2019-08-07] MEDS: PANTOPRAZOLE 40 MG TAB PO SCH (09:43)
--- NOTE | 2019-08-07 10:49 | Progress Note ---
Assessment and Plan Echo reviewed - EF 55-60%, mild LVH, restrictive diastolic filling pattern, LA severely dilated, RV systolic function mildly reduced, RA mildly dilated, mild MR, mild to mod TR, RVSP 62mmHg, trivial insignificant pericardial effusion. Currently stable cardiac status. D/c diuretics and cont anti-hypertensive medications. Pt may discharge home from cardiology standpoint. Recommend pt follow up in our office with Dr. Fernando within 1-2 weeks of discharge ([phone]). The patient has been seen in conjunction with Dr. Flores who agrees with the assessment and plan of care. - Patient Problems (1) Acute heart failure with preserved ejection fraction Current Visit: Yes Status: Acute (2) Tricuspid regurgitation Current Visit: Yes Status: Chronic (3) Hypertension Current Visit: Yes Status: Chronic (4) Tobacco use Current Visit: Yes Status: Chronic (5) Alcohol use Current Visit: Yes Status: Chronic Subjective Date of service: 08/07/19 Principal diagnosis: sob Interval history: pt sitting up in chair, states she is feeling much better today, no current complaints. in SR on tele. Objective Last Vital Signs Temp 98.4 F 08/07/19 07:42 Pulse 58 L 08/07/19 09:43 Resp 16 08/07/19 07:42 BP 103/67 08/07/19 09:43 Pulse Ox 100 08/07/19 07:42 - Physical Examination General: No Apparent Distress HEENT: Positive: PERRL Neck: Positive: neck supple Cardiac: Positive: Reg Rate and Rhythm, S1/S2, Systolic Murmur Lungs: Positive: Decreased Breath Sounds Neuro: Positive: Grossly Intact Abdomen: Positive: Unremarkable Skin: Positive: Clear Musculoskeletal: Normal Range of Motion Extremities: Present: edema (trace BLE ankle edema) - Labs and Meds Cardiac Enzymes 08/07/19 Range/Units 05:47 AST 29 (5-40) units/L CBC 08/07/19 Range/Units 05:47 WBC 8.7 (4.5-11.0) K/mm3 RBC 3.15 L (3.65-5.03) M/mm3 Hgb 8.8 L (10.1-14.3) gm/dl Hct 26.9 L (30.3-42.9) % Plt Count 208 (140-440) K/mm3 Lymph # 0.9 L (1.2-5.4) K/mm3 Johnston # 0.6 (0.0-0.8) K/mm3 Eos # 0.0 (0.0-0.4) K/mm3 Baso # 0.0 (0.0-0.1) K/mm3 Comprehensive Metabolic Panel 08/07/19 Range/Units 05:47 Sodium 140 (137-145) mmol/L Potassium 3.3 L (3.6-5.0) mmol/L Chloride 100.6 (98-107) mmol/L Carbon Dioxide 25 (22-30) mmol/L BUN 30 H (7-17) mg/dL Creatinine 1.4 H (0.7-1.2) mg/dL Glucose 130 H (65-100) mg/dL Calcium 9.1 (8.4-10.2) mg/dL AST 29 (5-40) units/L ALT 12 (7-56) units/L Alkaline Phosphatase 65 (35-129) units/L Total Protein 7.0 (6.3-8.2) g/dL Albumin 3.4 L (3.9-5) g/dL - Imaging and Cardiology EKG: report reviewed, image reviewed Echo: pending - Telemetry EKG Rhythm: Sinus Rhythm
[2019-08-07 16:35] VITALS: BP 114/69
[2019-08-07] MEDS ORDERED: POTASSIUM CHLORIDE ER 20 MEQ TAB PO STA (16:37)
--- NOTE | 2019-08-07 18:59 | Discharge Summary ---
Providers - Providers Date of Admission: 08/06/19 08:31 Date of discharge: 08/07/19 Attending physician: VERN ALCARAZ 08/06/19 11:17 Consult to Physician [CONS] Routine Comment: Consulting Provider: UMM SHIRLEY Physician Instructions: Reason For Exam: SOB/CP [facility] Condition: Stable Hospital course: 74 year old female comes in persistent SOB and High BP.Patient is from [place] and visiting her daughter.Not taking her BP meds regularly.No orthopnea.SOB on some exertion.Class II NYHA symptomms.No fever or chills.ecent travel present.No Leg swelling or cramps. BP was 239/134 initially Was given IV Labetolol in ED. (1) Malignant hypertension Current Visit: Yes Status: Acute Plan to address problem: Discharge on lisinopril 20/12.5 and potassium supplement (2) Acute heart failure with preserved ejection fraction Current Visit: Yes Status: Acute Plan to address problem: Diastolic Heart failure HCTZ as in Lisinopril combo Follow with Cardiology (3) IBS (irritable bowel syndrome) Current Visit: Yes Status: Chronic Qualifiers: Irritable bowel syndrome type: with both diarrhea and constipation Qualified Code(s): 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 irritable bowel syndrome Plan to address problem: Cont Linzess (4) OAB (overactive bladder) Current Visit: Yes Status: Chronic Plan to address problem: Cont Oxybutinin (5) GERD (gastroesophageal reflux disease) Current Visit: Yes Status: Chronic Qualifiers: Esophagitis presence: without esophagitis Qualified Code(s): K21.9 - Gastro-esophageal reflux disease without esophagitis Plan to address problem: Cont protonix (6) Depression Current Visit: Yes Status: Chronic Qualifiers: Depression Type: unspecified Qualified Code(s): F32.9 - Major depressive disorder, single episode, unspecified Plan to address problem: Cont Zoloft Disposition: DC-01 TO HOME OR SELFCARE Core Measure Documentation - Palliative Care Palliative Care/ Comfort Measures: Not Applicable - Core Measures Any of the following diagnoses?: none Exam - Constitutional Vitals: Temp Pulse Resp BP Pulse Ox 98.4 F 59 L 16 114/69 98 08/07/19 16:34 08/07/19 16:34 08/07/19 16:34 08/07/19 16:34 08/07/19 16:34 General appearance: Present: no acute distress, well-nourished - EENT Eyes: Present: PERRL ENT: hearing intact, clear oral mucosa - Neck Neck: Present: supple, normal ROM - Respiratory Respiratory effort: normal Respiratory: bilateral: CTA - Cardiovascular Heart rate: 78 Rhythm: regular Heart Sounds: Present: S1 & S2. Absent: rub, click - Extremities Extremities: pulses symmetrical, No edema Peripheral Pulses: within normal limits - Abdominal General gastrointestinal: Present: soft, non-tender, non-distended, normal bowel sounds Female genitourinary: Present: normal - Integumentary Integumentary: Present: clear, warm, dry - Musculoskeletal Musculoskeletal: gait normal, strength equal bilaterally - Psychiatric Psychiatric: appropriate mood/affect, intact judgment & insight - Neurologic Neurologic: CNII-XII intact, moves all extremities Plan Diet: low fat, low cholesterol, low salt Follow up with: UMM SHIRLEY MD [Staff Physician] - 7 Days [place] STANLEY MONTEMAYOR MD [Primary Care Provider] - 7 Days
== END 2019-08-07 20:49 | disposition home or self-care (01) ==
LOC: ED 04:33 → INTOOBSV 08:31 → 4A 08:31
PROVIDERS: ADMIT Internal Medicine; ATTEND Internal Medicine
DX: R06.03 Acute respiratory distress (principal); I11.0 Hypertensive heart disease with heart failure; I50.9 Heart failure, unspecified; J81.1 Chronic pulmonary edema; K58.9 Irritable bowel syndrome, unspecified; N32.81 Overactive bladder; K21.9 Gastro-esophageal reflux disease without esophagitis; F32.9 Major depressive disorder, single episode, unspecified; F17.200 Nicotine dependence, unspecified, uncomplicated; E78.5 Hyperlipidemia, unspecified; J45.909 Unspecified asthma, uncomplicated; I07.1 Rheumatic tricuspid insufficiency
CPT/HCPCS: 36415; 71045; 80048; 80053; 80061; 80076; 82550; 82553; 83036; 83880; 84484; 85025; 85610; 85730; 93005; 93010; 93306; 94760; 96374; 96375; 96376; 99291; G0378; J1940; J2930